=== PATIENT | female | born 1995 | race Caucasian/White ===

== ENCOUNTER 2016-12-29 12:59 | Emergency (ER) | payer OTHER ==
[2016-12-29 13:09] VITALS: TEMP 98.4; BMI 43.2
--- NOTE | 2016-12-29 13:40 | PDOC ---
History of Present Illness <Batsheva Chatman - Last Filed: 12/29/16 15:33> - History of Present Illness Initial Comments: 21 year old female with history of chronic nausea presenting with intractable nausea, vomiting, and abdominal pain for the past few hours. She states that she has had nausea for the past 5 years that she had treated symptomatically with variable success. Her nausea has escalated to severe abdominal pain and vomiting with occasional diarrhea over the past week. She was actually scheduled for an endoscopy on the day of presentation but her nausea, vomiting, and pain were too difficult to control and prevented her from attending the appointment. Denies fevers, chills, chest pain, constipation, hematemesis, blood in the stool, or other sick symptoms. She is a grad student studying art history and her GI doctor is Dr. Arzola. 12/29/16 15:57 <Home Blair - Last Filed: 12/29/16 16:55> - General Chief Complaint: Nausea/Vomiting Stated Complaint: NAUSEA/VOMITING Time Seen by Provider: 12/29/16 13:40 Past History <Batsheva Chatman - Last Filed: 12/29/16 15:33> - Past Medical History Asthma: Yes - Psycho/Social/Smoking Cessation Hx Suicidal Ideation: No Smoking History: Never smoked Hx Alcohol Use: No Drug/Substance Use Hx: No <Home Blair - Last Filed: 12/29/16 16:55> - Past Medical History Allergies/Adverse Reactions: Allergies Allergy/AdvReac Type Severity Reaction Status Date / Time tomato Allergy Verified 12/29/16 13:09 EGGPLANT Allergy Uncoded 12/29/16 13:09 Home Medications: Ambulatory Orders Famotidine/Ca Carb/Mag Hydrox [Pepcid Complete Tablet Chew] 1 each PO BID PRN # 14 tab.chew 12/29/16 Mag Hydrox/Al Hydrox/Simeth [Mylanta Suspension -] 30 ml PO Q6H #1 bottle Ondansetron [Zofran Odt -] 4 mg SL TID #21 od.tablet 12/29/16 Review of Systems - Review of Systems Constitutional: No: Chills, Diaphoresis, Fever, Loss of Appetite HEENTM: No: Blurred Vision, Double Vision Respiratory: No: Cough, Shortness of Breath, Wheezing Cardiac (ROS): No: Chest Pain, Lightheadedness ABD/GI: Yes: Diarrhea, Nausea, Vomiting, Indigestion. No: Abdominal Distended, Blood Streaked Bowels, Constipated, Tarry Stools <Home Blair - Last Filed: 12/29/16 16:55> *Physical Exam - Vital Signs Last Vital Signs Temp Pulse Resp BP Pulse Ox 98.4 F 99 H 16 129/81 97 12/29/16 13:07 12/29/16 13:07 12/29/16 13:07 12/29/16 13:07 12/29/16 13:07 <Batsheva Chatman - Last Filed: 12/29/16 15:33> - Vital Signs Last Vital Signs Temp Pulse Resp BP Pulse Ox 98.4 F 99 H 16 129/81 97 12/29/16 13:07 12/29/16 13:07 12/29/16 13:07 12/29/16 13:07 12/29/16 13:07 - Physical Exam General Appearance: Yes: Nourished, Appropriately Dressed. No: Apparent Distress HEENT: positive: EOMI, Normal Voice Neck: positive: Trachea midline, Normal Thyroid, Supple. negative: Tender, Rigid Respiratory/Chest: positive: Lungs Clear, Normal Breath Sounds. negative: Chest Tender, Respiratory Distress, Accessory Muscle Use Cardiovascular: positive: Regular Rhythm, Regular Rate, S1, S2. negative: Edema , Murmur Gastrointestinal/Abdominal: positive: Normal Bowel Sounds, Tender (Slight epigastric tenderness), Flat, Soft. negative: Organomegaly Integumentary: positive: Normal Color, Dry, Warm Neurologic: positive: Fully Oriented, Alert, Normal Mood/Affect <Home Blair - Last Filed: 12/29/16 16:55> Procedures - Bedside Ultrasound Bedside Ultrasound: Gallbladder Other: renal and gb us normal. see [facility] for report <Batsheva Chatman - Last Filed: 12/29/16 15:33> ED Treatment Course - LABORATORY CBC & Chemistry Diagram: 12/29/16 14:00 12/29/16 13:58 - ADDITIONAL ORDERS Additional order review: Laboratory Results 12/29/16 12/29/16 14:00 13:58 Sodium 138 Potassium 5.0 Chloride 103 Carbon Dioxide 25 Anion Gap 10 BUN 10 Creatinine 0.6 Creat Clearance w eGFR > 60 Random Glucose 90 Calcium 9.6 Total Bilirubin 0.6 AST 51 H ALT 26 Alkaline Phosphatase 91 Total Protein 7.8 Albumin 4.1 Lipase 88 Urine Color Lt. yellow Urine Appearance Clear Urine pH 6.0 Urine Protein Negative Urine Glucose (UA) Negative Urine Ketones Negative Urine Blood Negative Urine Nitrite Negative Urine Bilirubin Negative Urine Urobilinogen 0.2 Ur Leukocyte Esterase Negative Urine HCG, Qual Negative 12/29/16 14:00 RBC 4.89 MCV 82.6 MCHC 33.7 RDW 14.3 MPV 6.9 L Neutrophils % 72.8 Lymphocytes % 20.8 Monocytes % 5.4 Eosinophils % 0.7 Basophils % 0.3 - Medications Given in the ED: ED Medications Discontinued Medications Generic Name Dose Route Start Last Admin Trade Name Shashank PRN Reason Stop Dose Admin Al Hydroxide/Mg Hydroxide 30 ml 12/29/16 14:40 12/29/16 15:07 Mylanta Oral Suspension - PO 12/29/16 14:41 30 ml ONCE ONE Administration Sodium Chloride 1,000 mls @ 1,000 mls/hr 12/29/16 14:15 12/29/16 14:15 Normal Saline - IV 12/29/16 15:14 1,000 mls/hr ASDIR ONE Administration <Batsheva Chatman - Last Filed: 12/29/16 15:33> - LABORATORY CBC & Chemistry Diagram: 12/29/16 14:00 12/29/16 13:58 <Home Blair - Last Filed: 12/29/16 16:55> Medical Decision Making - Medical Decision Making 12/29/16 15:34 focused ED ultrasound RUQ , indication epigastric pain. gallbladder scanned in two planes with b mode, curvilinear probe. no stones, no wall edema or thickneing. negative sonographic martinez's. no pericholecystic fluid. wall measured. 1.2mm CBD measured 2.9mm impression: normal gallbladder focused ED ultrasound renal, indication abd pain, n/v. bilateral renal ultrasound performed, kidneys scanned in two planes. no hydronephrosis or cyst noted. bladder nondistended. impression: normal renal ultrasound. cirillli <Batsheva Chatman - Last Filed: 12/29/16 15:33> - Medical Decision Making 21 year old female with PMH of chronic nausea presenting with intractable nausea , vomiting, and abdominal pain for the past few hours. Unfortunately, she had to skip her endoscopy today because of her symptoms. Her LMP was months ago because of her IUD use. 12/29/16 16:08 Upreg negative, bedside US negative for stone. All labs WNL. Will DC patient home with Zofran, pepcid, and maalox. 12/29/16 16:45 <Home Blair - Last Filed: 12/29/16 16:55> *DC/Admit/Observation/Transfer <Batsheva Chatman - Last Filed: 12/29/16 15:33> - Discharge Dispostion Admit: No - Attestations Physician Attestion: I, Dr. Home Blair, attest that this document has been prepared under my direction and personally reviewed by me in its entirety. I further attest, that it accurately reflects all work, treatment, procedures and medical decision -making performed by me. 12/29/16 16:54 <Home Blair - Last Filed: 12/29/16 16:55> Diagnosis at time of Disposition: Gastritis - Discharge Dispostion Disposition: HOME Condition at time of disposition: Improved - Prescriptions Prescriptions: Mag Hydrox/Al Hydrox/Simeth [Mylanta Suspension -] 30 ml PO Q6H #1 bottle Famotidine/Ca Carb/Mag Hydrox [Pepcid Complete Tablet Chew] 1 each PO BID PRN # 14 tab.chew PRN Reason: Dyspepsia Ondansetron [Zofran Odt -] 4 mg SL TID #21 od.tablet - Patient Instructions Printed Discharge Instructions: DI for Gastritis Additional Instructions: You were seen for nausea, vomiting, and severe abdominal pain. We believe that you have a gastric ulcer potentially. You need to be seen by your GI physician and they need to place a scope down your throat to see into your stomach. Please take the medications as prescribed and they should help with your symptoms. Please follow up with your GI physician. Please return to the ED if you have symptoms that are uncontrollable with medications or notice blood in your vomit or stool.
[2016-12-29 14:10] LABS: BASOPHIL 0.3 % (0-2.0); EOSINOPHIL 0.7 % (0-4.5); MCH 27.8 pg (25.7-33.7); MCHC 33.7 g/dl (32.0-36.0); MEAN CELL VOLUME 82.6 fl (80-96); MEAN PLT VOLUME 6.9 fl (7.5-11.1); NEUTROPHILS 72.8 % (42.8-82.8); PLATELET COUNT 326 K/MM3 (134-434); RDW 14.3 % (11.6-15.6); WHITE BLOOD COUNT 8.4 K/mm3 (4.0-10.0)
[2016-12-29] MEDS ORDERED: SODIUM CHLORIDE 1,000 ML IV ONE (14:15)
[2016-12-29 14:27] LABS: URINE APPEARANCE CLEAR; URINE BILIRUBIN NEGATIVE (NEGATIVE); URINE BLOOD NEGATIVE (NEGATIVE); URINE COLOR LT. YELLOW; URINE GLUCOSE (UA) NEGATIVE (NEGATIVE); URINE KETONE NEGATIVE (NEGATIVE); URINE LEUK ESTERASE NEGATIVE (NEGATIVE); URINE NITRITE NEGATIVE (NEGATIVE); URINE PROTEIN NEGATIVE (NEGATIVE); URINE UROBILINOGEN 0.2 mg/dL (0.2-1.0)
[2016-12-29] MEDS ORDERED: MAG HYDROX/AL HYDROX/SIMETH 30 ML UNIT-DOSE CUP PO ONE (14:40)
[2016-12-29 14:42] LABS: ALBUMIN 4.1 g/dl (3.4-5.0); ALK PHOS 91 U/L (45-117); ANION GAP 10 (8-16); BILIRUBIN,TOTAL 0.6 mg/dL (0.2-1.0); CALCIUM 9.6 mg/dL (8.5-10.1); CO2 25 mmol/L (21-32); CREATININE 0.6 mg/dL (0.55-1.02); GLUCOSE,RANDOM 90 mg/dL (74-106); TOT PROT 7.8 g/dl (6.4-8.2)
[2016-12-29 14:52] LABS: SGPT/ALT 26 U/L (12-78)
[2016-12-29 14:53] LABS: SGOT/AST 51 U/L (15-37)
--- NOTE | 2016-12-29 15:01 | PDOC ---
Attending Attestation - Resident Resident Name: Home Blair - ED Attending Attestation I have performed the following: I have examined & evaluated the patient, The case was reviewed & discussed with the resident, I agree w/resident's findings & plan, Exceptions are as noted - HPI HPI: 12/29/16 14:57 21 yo F with ho reflux, recurrent reflux and nausea, here today with c/o n/v. pt states was supposed to see a GI today, suddenly felt nauseas threw up twice, unable to make it to GI appt. no f/c not . no urinary sxs. was taking antacids but stopped because no longer working. pain mild, gnawing. no t sharp no radiation. no other complaints. - Physicial Exam PE: 12/29/16 14:59 awake alert lungs clear heart rrr no mrg. abd soft NT obese. nondistended. ext wwp . no edema no swelling. skin warm and dry. - Medical Decision Making 12/29/16 14:59 21 yo F with h/o gerd, here with n/v epigasric pain differnetial uti, gerd, gastritis, cholelithaisis, plan bedside us, gi meds, antiemetics, ua ucg reassess. 12/29/16 15:36 focused ED ultrasound renal no hydronephrosis, gallbaldder normal no stones. normal CBd. feels better after medication. will tx with antacid.
[2016-12-29] MEDS ORDERED: MAG HYDROX/AL HYDROX/SIMETH 30 ML UNIT-DOSE CUP ONE (15:03)
[2016-12-29] MEDS ORDERED: FAMOTIDINE 20 MG/50 ML IVPB 50 ML IVPB ONE ×2 (15:38→16:07)
[2016-12-29] MEDS ORDERED: ONDANSETRON 4 MG/2 ML VIAL IVPUSH ONE (15:39)
[2016-12-29] MEDS ORDERED: ONDANSETRON 4 MG/2 ML VIAL ONE (16:07)
[2016-12-29 17:17] VITALS: BP 130/77; PULSE 86
== END 2016-12-29 17:15 | disposition home or self-care (01) ==
LOC: JER 12:59
PROC: 3E033GC Introduction of Other Therapeutic Substance into Peripheral Vein, Percutaneous Approach (ICD-10-PCS; principal; 2016-12-29)
PROC: 3E0337Z Introduction of Electrolytic and Water Balance Substance into Peripheral Vein, Percutaneous Approach (ICD-10-PCS; 2016-12-29)
DX: K29.70 Gastritis, unspecified, without bleeding (principal)
CPT/HCPCS: 36415; 80053; 81003; 83690; 84703; 85025; 99282-25

== ENCOUNTER 2017-01-07 11:18 | Emergency (ER) | payer OTHER ==
[2017-01-07 11:24] VITALS: BMI 43.2
--- NOTE | 2017-01-07 11:55 | PDOC ---
History of Present Illness - General Chief Complaint: Nausea/Vomiting Stated Complaint: NAUSEA, VOMITING Time Seen by Provider: 01/07/17 11:54 - History of Present Illness Initial Comments: 01/07/17 12:18 Patient is a 21-year-old female with a past medical history of recurrent nausea and vomiting who presents to the emergency department today complaining of nausea vomiting and diarrhea for 3 days. Patient states that she has been suffering with recurrent bouts of nausea and vomiting for approximately 5 years. She states that approximately a week ago it was worse and she was flaring up more than usual. She was seen in our emergency department and she had a negative ultrasound at that time. She was given Zofran, Pepcid, Maalox and discharged home to follow up with her leadership intern. Patient states that she was managing at home with her Zofran but she ran out of medication. Once she ran out of medication the symptoms returned. She has been having nausea and vomiting and diarrhea for 3 straight days now. She states that before it started she felt very lightheaded and dizzy. She has had poor by mouth intake since her symptoms recurred. She states that she is to see her leadership intern on Thursday for endoscopy. Denies fevers, chills, cough, shortness of breath, chest pain, palpitations, edema, frequency, urgency, dysuria. Patient has an IUD in place. She does not have a menstrual cycle due to her IUD. Past History - Past Medical History Allergies/Adverse Reactions: Allergies Allergy/AdvReac Type Severity Reaction Status Date / Time tomato Allergy Verified 01/07/17 11:24 EGGPLANT Allergy Uncoded 01/07/17 11:24 Home Medications: Ambulatory Orders Ondansetron [Zofran -] 4 mg PO TID #30 tablet 01/07/17 Asthma: Yes - Psycho/Social/Smoking Cessation Hx Suicidal Ideation: No Smoking History: Never smoked Hx Alcohol Use: No Drug/Substance Use Hx: No Substance Use Type: Marijuana *Physical Exam - Vital Signs Last Vital Signs Temp Pulse Resp BP Pulse Ox 98.0 F 93 H 20 132/69 97 01/07/17 11:21 01/07/17 11:21 01/07/17 11:21 01/07/17 11:21 01/07/17 11:21 ED Treatment Course - LABORATORY CBC & Chemistry Diagram: 01/07/17 12:50 01/07/17 12:50 Medical Decision Making - Medical Decision Making 01/07/17 16:16 Pt. is a 21 y/o female with PMH of abdominal pain, nausea, vomiting, presents to the ED d/t her intractible nausea. She is seeking Zofran at this time. She was seen in this ED last week and had a negative ultrasound at that time. Will defer scan at this time. Pt. states she has follow up with GI next Thursday for endoscopy. Looking for antiemesis medication supply to get her to her appointment. 1. CBC, CMP, UA, Upregancy 2. Fluids, zofran, toradol, pepcid 3. Re-evaluate 01/07/17 17:29 Pt. feeling slightly better, still c/o nausea. Will give reglan and benadryl at this time. 01/07/17 18:34 Pt. states nausea is resolved and would like to go home. Will give enough zofran to get her to her appointment with her GI doctor. Pt. feels comfortable with discharge planning and all questions were answered. *DC/Admit/Observation/Transfer Diagnosis at time of Disposition: Gastritis Gastritis Qualifiers: Gastritis type: unspecified gastritis Chronicity: unspecified Gastritis bleeding: without bleeding Qualified Code(s): K29.70 - Gastritis, unspecified, without bleeding Nausea & vomiting Qualifiers: Vomiting type: unspecified Vomiting Intractability: non-intractable Qualified Code(s): R11.2 - Nausea with vomiting, unspecified - Discharge Dispostion Admit: No - Prescriptions Prescriptions: Ondansetron [Zofran -] 4 mg PO TID #30 tablet - Patient Instructions Printed Discharge Instructions: DI for Vomiting -- Adult, DI for Nausea -- Adult, DI for Gastritis Additional Instructions: You had an episode of nausea and vomiting. You were prescribed Zofran. Take the Zofran as prescribed until you follow up with you GI doctor. It is important that you are able to go for your endoscopy next week. Eat a bland diet including plain rice, bananas, toast, and apple sauce. You should also take Zantac twice a day. This is an over the counter medication that helps with acid. You should also try taking peptobismol if your stomach allows. Return to the ED if you have worsening abdominal pain, cannot stop vomiting regardless of medication, develop fevers or chills, or have any changes in your symptoms.
[2017-01-07] MEDS ORDERED: SODIUM CHLORIDE 1,000 ML IV STA (12:11)
[2017-01-07] MEDS ORDERED: ONDANSETRON 4 MG/2 ML VIAL IVPUSH ONE ×2 (12:11→14:13)
[2017-01-07] MEDS ORDERED: KETOROLAC TROMETHAMINE 30 MG/1 ML VIAL IVPUSH ONE (12:12)
[2017-01-07] MEDS ORDERED: ONDANSETRON 4 MG/2 ML VIAL ONE ×2 (12:23→14:06)
[2017-01-07] MEDS ORDERED: KETOROLAC TROMETHAMINE 30 MG/1 ML VIAL ONE ×2 (12:23→12:24)
[2017-01-07 13:01] LABS: BASOPHIL 0.3 % (0-2.0); EOSINOPHIL 0.7 % (0-4.5); MCH 27.4 pg (25.7-33.7); MEAN CELL VOLUME 83.1 fl (80-96); MEAN PLT VOLUME 7.4 fl (7.5-11.1); NEUTROPHILS 72.2 % (42.8-82.8); PLATELET COUNT 332 K/MM3 (134-434); RDW 14.2 % (11.6-15.6); WHITE BLOOD COUNT 7.7 K/mm3 (4.0-10.0)
[2017-01-07 13:29] LABS: ANION GAP 6 (8-16); CALCIUM 9.5 mg/dL (8.5-10.1); CO2 26 mmol/L (21-32); CREATININE 0.9 mg/dL (0.55-1.02); GLUCOSE,RANDOM 88 mg/dL (74-106); SGPT/ALT 27 U/L (12-78)
[2017-01-07 13:31] LABS: ALK PHOS 93 U/L (45-117); BILIRUBIN,TOTAL 0.9 mg/dL (0.2-1.0)
[2017-01-07 13:37] LABS: SGOT/AST 54 U/L (15-37)
[2017-01-07] MEDS ORDERED: METOCLOPRAMIDE HCL INJECTION 10 MG/2 ML VIAL IVPB ONE (13:38)
[2017-01-07] MEDS ORDERED: METOCLOPRAMIDE HCL INJECTION 10 MG/2 ML VIAL ONE (13:43)
[2017-01-07 13:45] LABS: URINE APPEARANCE CLEAR; URINE BILIRUBIN NEGATIVE (NEGATIVE); URINE BLOOD NEGATIVE (NEGATIVE); URINE COLOR YELLOW; URINE GLUCOSE (UA) NEGATIVE (NEGATIVE); URINE KETONE NEGATIVE (NEGATIVE); URINE LEUK ESTERASE NEGATIVE (NEGATIVE); URINE NITRITE NEGATIVE (NEGATIVE); URINE PROTEIN NEGATIVE (NEGATIVE); URINE UROBILINOGEN NEGATIVE mg/dL (0.2-1.0)
[2017-01-07] MEDS ORDERED: SODIUM CHLORIDE 500 ML IV STA (14:13)
[2017-01-07 14:15] VITALS: BP 118/66; PULSE 82; TEMP 98.2
[2017-01-07] MEDS ORDERED: ONDANSETRON *ODT* 4 MG TABLET SL ONE (16:17)
[2017-01-07] MEDS ORDERED: ONDANSETRON *ODT* 4 MG TABLET ONE (16:27)
== END 2017-01-07 16:21 | disposition home or self-care (01) ==
LOC: JER 11:18
PROC: 3E033GC Introduction of Other Therapeutic Substance into Peripheral Vein, Percutaneous Approach (ICD-10-PCS; principal; 2017-01-07)
PROC: 3E033GC Introduction of Other Therapeutic Substance into Peripheral Vein, Percutaneous Approach (ICD-10-PCS; 2017-01-07)
PROC: 3E033GC Introduction of Other Therapeutic Substance into Peripheral Vein, Percutaneous Approach (ICD-10-PCS; 2017-01-07)
DX: K29.70 Gastritis, unspecified, without bleeding (principal)
CPT/HCPCS: 36415; 80053; 81003; 83690; 84703; 85025; 99284-25